=== PATIENT | male | born 1975 | race Caucasian/White ===

== ENCOUNTER 2024-11-24 09:21 | Outpatient (CLI) | payer OTHER, SELFPAY | END 2024-11-24 09:22 | disposition home or self-care (01) | PROVIDERS: PCP Family Medicine; Visit Provider Family Medicine | DX: I10 Essential (primary) hypertension (principal); E10.65 Type 1 diabetes mellitus with hyperglycemia; R53.83 Other fatigue | CPT/HCPCS: 80048; 80061; 84443; 85025 ==

== ENCOUNTER 2025-03-04 10:00 | Outpatient (CLI) | payer OTHER, SELFPAY | END 2025-03-04 10:01 | disposition home or self-care (01) | LOC: NFLDREF 03-09 08:22 | PROVIDERS: PCP Family Medicine; Referring Provider Family Medicine; Visit Provider Family Medicine | DX: E10.9 Type 1 diabetes mellitus without complications (principal) | CPT/HCPCS: 82043; 82570 ==